=== PATIENT | female | born 1955 | race Hispanic/Latino ===

== ENCOUNTER 2017-12-15 07:01 | Day surgery (SDC) | payer OTHER ==
[2017-12-15 08:25] LABS: Basophils # (Auto) 0.1 K/mm3 (0.0-0.1); Basophils % (Auto) 1.2 % (0.0-1.8); Eosinophils # (Auto) 0.4 K/mm3 (0.0-0.4); Eosinophils % (Auto) 7.1 % (0.0-4.3); Hematocrit 35.4 % (30.3-42.9); Hemoglobin 12.2 gm/dl (10.1-14.3); Lymphocytes # (Auto) 1.9 K/mm3 (1.2-5.4); Lymphocytes % (Auto) 32.3 % (13.4-35.0); Mean Corpuscular HGB Conc 35 % (30-34); Mean Corpuscular Hemoglobin 31 pg (28-32); Mean Corpuscular Volume 91 fl (79-97); Monocytes # (Auto) 0.6 K/mm3 (0.0-0.8); Monocytes % (Auto) 10.6 % (0.0-7.3); Platelet Count 191 K/mm3 (140-440); Red Blood Count 3.89 M/mm3 (3.65-5.03); Red Cell Distribution Width 12.9 % (13.2-15.2)
[2017-12-15] MEDS ORDERED: NITROGLYCERIN SYRINGE 3 ML ONE (08:31)
[2017-12-15] MEDS ORDERED: HEPARIN/NS 5000 UNIT/500ML(CATH LAB) 1,000 ML IR ONE (08:31)
[2017-12-15] MEDS ORDERED: XYLOCAINE 2% INFILTRATI ONE (08:31)
[2017-12-15 08:43] LABS: INR 0.91 (0.87-1.13)
[2017-12-15] MEDS ORDERED: NACL 0.9% 500 ML 500 ML IV SCH (09:00)
[2017-12-15] MEDS ORDERED: CALAN ONE (09:10)
[2017-12-15] MEDS ORDERED: VERSED ONE (09:10)
[2017-12-15 09:31] LABS: BUN/Creatinine Ratio 26; Blood Urea Nitrogen 18 mg/dL (7-17); Calcium 8.3 mg/dL (8.4-10.2); Hemolysis Index 24
[2017-12-15] MEDS: SUBLIMAZE ONE ×2 (10:06→10:08)
[2017-12-15] MEDS: HEPARIN 10,000 UNITS/10 ML ONE ×2 (10:09→10:18)
[2017-12-15] MEDS ORDERED: NACL 0.9% 100 ML ONE (10:14)
[2017-12-15] MEDS ORDERED: RANEXA ER PO SCH (11:00)
--- NOTE | 2017-12-15 11:02 | Short Stay Summary ---
Short Stay Documentation Date of service: 12/15/17 - History H&P: obtained from office - Allergies and Medications Current Medications: Allergies droperidol [From Inapsine] Allergy (Verified 12/15/17 09:08) SHORTNESS OF BREATH,EPA ketamine Allergy (Verified 12/15/17 09:08) SHORTNESS OF BREATH, EPA NSAIDS (Non-Steroidal Anti-Inflamma Allergy (Verified 12/15/17 09:08) Shortness of Breath promethazine [From Phenergan] Allergy (Verified 12/15/17 09:08) Shortness of Breath Home Medications Medication Instructions Recorded Confirmed Last Taken Type ALPRAZolam [Xanax TAB] 0.5 mg PO DAILY PRN 12/15/17 12/15/17 12/14/17 History 0.5mg Aspirin [Adult Low Dose Aspirin EC] 81 mg PO BID 12/15/17 12/15/17 12/15/17 History 81mg Estradiol 0.5 mg PO BID 12/15/17 12/15/17 12/14/17 History 0.5mg Rosamond 40 mg PO BID 12/15/17 12/15/17 12/14/17 History 40mg Sertraline [Zoloft] 50 mg PO BID 12/15/17 12/15/17 12/14/17 History 50mg fentaNYL [Fentanyl] 100 mcg TRANSDERMA Q48HR 12/15/17 12/15/17 12/15/17 History 100mcg oxyCODONE /ACETAMINOPHEN 1 tab PO DAILY PRN 12/15/17 12/15/17 12/14/17 History 1 Active Medications Sodium Chloride (Nacl 0.9% 500 Ml) 500 mls @ 50 mls/hr IV DIRECT CHRIS Stop: 12/15/17 18:59 Last Admin: 12/15/17 09:01 Dose: 50 mls/hr - Brief post op/procedure progress note Date of procedure: 12/15/17 Pre-op diagnosis: angina Post-op diagnosis: same Procedure: see report Anesthesia: local Estimated blood loss: none Pathology: none - Disposition Condition at discharge: Good Disposition: [id number] TO HOME OR SELFCARE - Discharge Diagnoses (1) Hyperlipemia, mixed Status: Chronic (2) Angina of effort Status: Acute (3) CAD (coronary artery disease) Status: Chronic Qualifiers: Coronary Disease-Associated Artery/Lesion type: [place] artery [place] vs. transplanted heart: [place] heart Associated angina: with stable angina Qualified Code(s): I25.118 - Atherosclerotic heart disease of [place] coronary artery with other forms of angina pectoris (4) Family history of premature CAD Status: Chronic (5) Crohn's disease Status: Chronic Qualifiers: Digestive disease complication type: unspecified complication Short Stay Discharge Plan Activity: advance as tolerated Diet: low fat, low cholesterol Wound: keep clean and dry Follow up with: MILO OLSON MD [Other] - 7 Days Prescriptions: Ranolazine ER [Ranexa ER] 500 mg PO BID #60 tablet
[2017-12-15 14:28] VITALS: BP 91/57
--- NOTE | 2017-12-15 15:43 | Cardiac Catherization Report ---
LEFT HEART CATHETERIZATION/FRACTIONAL FLOW RESERVE CLINICAL INFORMATION: A 62-year-old female with known history of coronary artery disease with catheterization done 5 years ago with mid LAD 40% to 50%, presents with last 2 weeks of anginal symptoms at rest with no activity. The patient has a strong family history of premature CAD and hyperlipidemia, intolerant to statin medications and the patient is unable to take Imdur or beta bryan secondary to side effects. Procedure was done under mild sedation. Total sedation time was 30 minutes, started at 10:03 a.m. finished at 10:33 a.m. The patient received 1 mg of Versed and 75 mcg of fentanyl. PROCEDURE IN DETAIL: Done via the right radial artery, sterile technique, local anesthesia, 6-Thai radial sheath inserted. PROCEDURE FINDINGS: 1. Left system engaged with a JL3.5 catheter. Left main is large and patent, bifurcates into a medium caliber LAD with moderate tortuosity. Mid has a focal 40% to 50% right at a small diagonal 1 that has an ostial 80% lesion. Diagonal 2 is a small caliber vessel, patent. Circumflex and AV groove is a medium caliber vessel, goes into a medium caliber ramus, is patent and a small circ and AV groove. RCA engaged with JR4 catheter, is a large dominant vessel, patent proximally, mid mild disease and the mid portion 10% to 20% distally patent, bifurcates into a [id number] caliber PDA and PLV. LV gram done in the ARMENIAN and POOLE view shows EDP of 21 mmHg, LV is 105, aortic is 105/51. No gradient across the aortic valve on pullback. 5-Thai catheters all taken over a guidewire. Fractional flow reserve of the LAD for anginal symptoms and intermediate LAD lesion. Engaged the left system with a 6-Thai EBU 3.5 guiding catheter. 2. Equalized the pressure wire in the circumflex and passed FFF wire down to the distal LAD. 3. IV adenosine given 2 minutes and the patient was nonobstructive with FFR of 0.88. The patient FFR was removed. Repeat angiogram continued JAYLENE 3 flow. No dissection or perforation, continued 40% to 50% lesion at the mid LAD and ostial diagonal 80%. 4. A 6-Thai guiding catheter taken over the guidewire, 6-Thai radial sheath was discontinued and radial band applied. No hematoma, no bleeding. SUMMARY: 1. Nonobstructive LAD disease, 40% to 50% with negative FFR of 0.88. Diagonal 1 ostial has an 80% lesion, small caliber vessel. Left main patent, [place] patent, ramus patent, RCA patent with mild luminal irregularities with normal LV function. 2. Continue aspirin 81 mg and we will try Ranexa 500 twice a day for medical therapy and may consider PCSK9 inhibitors for hyperlipidemia. JOB# [id number] ALE/NTS
== END 2017-12-15 15:00 | disposition home or self-care (01) ==
LOC: CATHLABREC 07:01
PROVIDERS: ATTEND Internal Medicine
DX: I25.118 Atherosclerotic heart disease of native coronary artery with other forms of angina pectoris (principal); E78.5 Hyperlipidemia, unspecified; K50.90 Crohn's disease, unspecified, without complications; Z82.49 Family history of ischemic heart disease and other diseases of the circulatory system; Z79.82 Long term (current) use of aspirin; Z79.899 Other long term (current) drug therapy; Z90.710 Acquired absence of both cervix and uterus; Z98.890 Other specified postprocedural states; Z87.891 Personal history of nicotine dependence; Z88.6 Allergy status to analgesic agent; Z88.8 Allergy status to other drugs, medicaments and biological substances; Z79.01 Long term (current) use of anticoagulants
CPT/HCPCS: 36415; 80048; 85025; 85347; 85610; 85730; 93005; 93010; 93458; 93571; 99156; 99157; C1769; C1887; C1894; J0153; J1644; J2250; J3010; J7040; Q9967